=== PATIENT | female | born 1955 | race African-American/Black ===

== ENCOUNTER 2017-04-14 13:11 | Emergency (ER) | payer OTHER ==
[2017-04-14 13:34] VITALS: BP 152/85; PULSE 66; TEMP 97.8; BMI 30.5
--- NOTE | 2017-04-14 15:19 | PDOC ---
History of Present Illness - General Chief Complaint: Injury Stated Complaint: FALL/ RT SIDE PAIN Time Seen by Provider: 04/14/17 15:06 History Source: Patient Exam Limitations: No Limitations - History of Present Illness Initial Comments: 04/14/17 15:16 61 yr female with c/o pain to her right rib area for 5 days after hitting her ribs on the desk . pt has pain with moving, pain with deep breath. pt with history of DM. Severity: reports: mild Past History - Past Medical History Allergies/Adverse Reactions: Allergies Allergy/AdvReac Type Severity Reaction Status Date / Time No Known Allergies Allergy Verified 04/14/17 13:31 Home Medications: Ambulatory Orders Amlodipine Besylate [Norvasc] 10/16/12 Azithromycin [Zithromax Z-HIREN (5 DAYS) -] 250 mg PO ASDIR #6 tablet 10/16/12 Fluticasone Prop 0.05% Nasal [Flonase] 1 spray NS BID #1 spray.pump 10/16/12 Loratadine [Claritin] 10 mg PO DAILY #30 tablet 10/16/12 Tramadol HCl [Ultram] 50 mg PO TID PRN #12 tablet MDD 200mg 04/14/17 COPD: No HTN: Yes - Immunization History Immunization Up to Date: Yes - Suicide/Smoking/Psychosocial Hx Smoking Status: No Smoking History: Never smoked Have you smoked in the past 12 months: No Number of Cigarettes Smoked Daily: 0 Information on smoking cessation initiated: No Hx Alcohol Use: No Drug/Substance Use Hx: No Substance Use Type: None Trauma Specific PMHX - Complaint Specific PMHX Arthritis: No Back Injury: No Neck Injury: No Hx Sacro Iliac Joint Dysfunction: No Review of Systems - Review of Systems Able to Perform ROS?: Yes Is the patient limited Yakut proficient: No Constitutional: No: Symptoms Reported HEENTM: No: Symptoms Reported Respiratory: No: Symptoms reported Cardiac (ROS): No: Symptoms Reported ABD/GI: No: Symptoms Reported : No: Symptoms Reported Musculoskeletal: No: Symptoms Reported Integumentary: No: Symptoms Reported Neurological: No: Symptoms reported *Physical Exam - Vital Signs Last Vital Signs Temp Pulse Resp BP Pulse Ox 97.8 F 66 16 152/85 100 04/14/17 13:31 04/14/17 13:31 04/14/17 13:31 04/14/17 13:31 04/14/17 13:31 - Physical Exam General Appearance: Yes: Nourished, Appropriately Dressed HEENT: positive: EOMI, GUMARO, Normal ENT Inspection Neck: positive: Supple. negative: Tender Respiratory/Chest: positive: Lungs Clear, Normal Breath Sounds, Other (tender to the right rib under the breat, no crepitus ). negative: Chest Tender Cardiovascular: positive: Regular Rhythm, Regular Rate Gastrointestinal/Abdominal: positive: Normal Bowel Sounds, Soft. negative: Tender Musculoskeletal: positive: Normal Inspection Extremity: positive: Normal Capillary Refill, Normal Inspection, Normal Range of Motion Integumentary: positive: Normal Color, Dry, Warm ED Treatment Course - RADIOLOGY Radiology Studies Ordered: Category Date Time Status CHEST PA & LAT [RAD] Stat Radiology 04/14/17 15:12 Ordered RIBS RIGHT SIDE [RAD] Stat Radiology 04/14/17 15:12 Ordered Medical Decision Making - Medical Decision Making 04/14/17 15:18 cc: rib pain will get xray of ribs and chest pt took naprosyn [facility] [employer] *DC/Admit/Observation/Transfer Diagnosis at time of Disposition: Rib contusion Qualifiers: Encounter type: initial encounter Laterality: right Qualified Code(s): S20.211A - Contusion of right front wall of thorax, initial encounter - Discharge Dispostion Disposition: HOME Condition at time of disposition: Good - Prescriptions Prescriptions: Tramadol HCl [Ultram] 50 mg PO TID PRN #12 tablet MDD 200mg PRN Reason: Severe Pain - Referrals Referrals: Marnie Suresh [Primary Care Provider] - - Patient Instructions Additional Instructions: apply warm compresses to the area of pain every 2hrs for 20 minutes take ultram for pain as needed follow with your doctor in 1-2 days for follow up - Post Discharge Activity
== END 2017-04-14 16:27 | disposition home or self-care (01) ==
LOC: JERFT 13:11
DX: S20.211A Contusion of right front wall of thorax, initial encounter (principal); W22.8XXA Striking against or struck by other objects, initial encounter; Y93.89 Activity, other specified; Y92.89 Other specified places as the place of occurrence of the external cause; Y99.8 Other external cause status; E11.9 Type 2 diabetes mellitus without complications; I10 Essential (primary) hypertension
CPT/HCPCS: 71020-TC; 71101-TC-RT; 99281-25